=== PATIENT | female | born 1960 | race Caucasian/White ===

== ENCOUNTER → 2016-12-07 | Outpatient (CLI) | payer SELFPAY ==
[2016-12-07 09:51] LABS: CREATININE RESULT 0.73 mg/dL (0.52-1.25)
== END ==
LOC: OD 08:12
PROVIDERS: ATTEND Nurse Practitioner
DX: E03.9 Hypothyroidism, unspecified (principal); I10 Essential (primary) hypertension
CPT/HCPCS: 36415; 82565; 84443